=== PATIENT | female | born 1950 | race Caucasian/White ===

== ENCOUNTER 2019-07-11 00:34 | Observation (INO) ==
[2019-07-11] MEDS ORDERED: Naloxone 0.4 MG/ML INJ IVP PRN (02:25)
[2019-07-11] MEDS ORDERED: Isovue-370 500 ML BOTTLE IVP ONE ×2 (03:01→03:03)
[2019-07-11] MEDS ORDERED: Acetaminophen 325 MG TABLET PO PRN (04:00)
[2019-07-11] MEDS ORDERED: Ipratropium/Albuterol Neb 3 ML IH SCH (04:00)
[2019-07-11 04:52] LABS: Red Cell Distribution Width 18.6 % (11.5-14.5)
[2019-07-11 04:53] LABS: Hematocrit 16.2 % (35.3-44.9); Mean Corpuscular HGB Conc 33.3 g/dL (31.6-35.5); Mean Corpuscular Hemoglobin 30.5 pg (28.0-33.3); Mean Corpuscular Volume 91.5 fL (83.0-100.0); Platelet Count 146 K/mcL (140-400); Red Blood Count 1.77 M/mcL (3.82-4.97); White Blood Count 4.6 K/mcL (4.3-11.1)
[2019-07-11 05:01] LABS: Hemoglobin 5.4 g/dL (11.5-15.4)
[2019-07-11 05:12] LABS: % Iron Saturation 29 % (15-50); Alanine Aminotransferase 7 Units/L (7-52); Albumin 3.4 g/dL (3.5-5.7); Albumin/Globulin Ratio 1.3 (1.1-2.2); Alkaline Phosphatase 144 Units/L (34-104); Aspartate Amino Transferase 9 Units/L (13-39); BUN/Creatinine Ratio 15 (6-26); Bilirubin,Total 1.6 mg/dL (0.3-1.0); Blood Urea Nitrogen 10 mg/dL (8-23); C-Reactive Protein 88 mg/L (Less than 10); Calcium 8.5 mg/dL (8.6-10.3); Carbon Dioxide 21 mEq/L (23-29); Chloride 104 mEq/L (98-107); Gamma Glutamyl Transpeptidase 12 Units/L (7-64); Globulin 2.7 g/dL (2.4-3.5); Glucose 116 mg/dL (70-105); Iron 69 mcg/dL (50-170); Lactate Dehydrogenase 182 Units/L (140-271); Osmolality,Calculated 278 (280-300); Sodium 134 mEq/L (136-145); Total Protein 6.1 g/dL (6.4-8.9); Transferrin 172 mg/dL (203-362); eGFR For African Americans > 60 (> 60); eGFR For Non-African Americans > 60 (> 60)
[2019-07-11] MEDS ORDERED: 0.9 % Sodium Chloride 250 ML IVC SCH ×2 (05:15→12:45)
[2019-07-11 05:27] LABS: Ferritin 342 ng/mL (10-120)
[2019-07-11 05:33] LABS: Folate 14.2 ng/mL (3.0-16.0)
[2019-07-11] MEDS ORDERED: 0.9 % Sodium Chloride 250 ML ONE (06:43)
[2019-07-11] MEDS ORDERED: Tiotropium 18 MCG inhalation IH SCH (10:00)
[2019-07-11 11:26] LABS: INR 1.2
[2019-07-11 11:28] LABS: Hematocrit 20.1 % (35.3-44.9); Hemoglobin 6.8 g/dL (11.5-15.4); Mean Corpuscular HGB Conc 33.8 g/dL (31.6-35.5); Mean Corpuscular Hemoglobin 30.4 pg (28.0-33.3); Mean Corpuscular Volume 89.7 fL (83.0-100.0); Mean Platelet Volume 11.3 fL (9.4-12.4); Nucleated Red Blood Cells 1.1 /100 WBC (0); Platelet Count 150 K/mcL (140-400); Red Blood Count 2.24 M/mcL (3.82-4.97); White Blood Count 4.4 K/mcL (4.3-11.1)
[2019-07-11 12:34] LABS: Lymphocytes # 1.1 K/mcL (0.6-4.6); Monocytes # 0.1 K/mcL (0.0-1.3); Platelet Estimate Normal (Normal)
[2019-07-11 12:35] LABS: Anisocytosis 1+ (Not Present)
[2019-07-11 12:36] LABS: Ovalocytes 1+ (Not Present)
[2019-07-11] MEDS ORDERED: SODIUM CHLORIDE/NAHCO3/KCL/PEG 4,000 ML SOLN.RECON PO ONE (17:00)
[2019-07-11 17:41] VITALS: BP 125/65
[2019-07-11 19:07] LABS: Hematocrit 24.1 % (35.3-44.9); Mean Corpuscular HGB Conc 33.2 g/dL (31.6-35.5); Mean Corpuscular Hemoglobin 29.3 pg (28.0-33.3); Mean Corpuscular Volume 88.3 fL (83.0-100.0); Mean Platelet Volume 9.9 fL (9.4-12.4); Platelet Count 140 K/mcL (140-400); Red Blood Count 2.73 M/mcL (3.82-4.97); Red Cell Distribution Width 17.4 % (11.5-14.5); White Blood Count 4.4 K/mcL (4.3-11.1)
== END 2019-07-11 21:00 | disposition home or self-care (01) ==
LOC: 2NENU
PROVIDERS: ADMIT Internal Medicine; ATTEND Internal Medicine